=== PATIENT | female | born 1975 | race Caucasian/White ===

== ENCOUNTER 2018-09-06 10:11 | Day surgery (SDC) | payer BC ==
[2018-09-02 11:10] VITALS: BMI 35.6
[~2018-09-06 10:11] MED LIST: LIDOCAINE 1% 20 ML VIAL (10MG/ML) FOR IV START INTRADERMA PRN
[2018-09-06] MEDS: LACTATED RINGERS 1,000 ML IV SCH ×2 (10:55→12:17)
[2018-09-06 11:02] VITALS: TEMP 97.9
[2018-09-06] MEDS ORDERED: fentaNYL (PF) 50 MCG/ML 2 ML AMP ONE (12:21)
[2018-09-06] MEDS ORDERED: PROPOFOL 10 MG/ML 20 ML VIAL IV ONE (12:21)
[2018-09-06] MEDS ORDERED: LIDOCAINE 1% INJ 10MG/ML (20 ML MDV) ONE (12:21)
[2018-09-06 12:56] VITALS: BP 103/67; PULSE 61; RESP 18
--- NOTE | 2018-09-06 13:06 | P.PCN ---
Date of Procedure: 09/06/18 Procedure(s) Performed: Procedure: Total colonoscopy. Preoperative diagnosis: History of diverticulitis and abnormal CT. Postoperative diagnosis: Diverticulosis with no evidence of acute diverticulitis , strictures, polyps or cancer. Preparation: HalfLytely prep. Sedation: Was provided by anesthesia. Brief clinical history: The patient is a 42-year-old female who had an episode of diverticulitis in June of this year and continued to have abdominal symptoms after that. CT of the abdomen raised the possibility of neoplasia/ complicated diverticular disease. This evaluation is to assess for those possibilities and to guide therapy. This would be her first colonoscopy. Procedure: With the patient on her left lateral decubitus position and after informed consent and adequate sedation, the perianal area was inspected and it did not show any fissures or fistulas. There were no masses felt on digital rectal examination. The Olympus CFQ 160L video colonoscope was then inserted in the rectum in the usual fashion and advanced to the cecum. There were multiple diverticular orifices seen scattered on the left side and occasional small orifice around the hepatic flexure and on the right side with no evidence of acute diverticulitis or strictures. The mucosa appeared healthy. No significant polyps or tumors were seen or any pathology to correspond to the abnormalities on CT. I retroflexed the endoscope in the rectum before the endoscope was withdrawn. The patient tolerated the procedure well. Plan: The patient was reassured. Discussed dietary measures and symptomatic treatment. She will follow-up in our office as planned and we would keep you updated on her progress.
== END 2018-09-06 13:45 | disposition home or self-care (01) ==
LOC: ORWHC2ENDO 10:11
DX: K57.30 Diverticulosis of large intestine without perforation or abscess without bleeding (principal); F17.210 Nicotine dependence, cigarettes, uncomplicated; K21.9 Gastro-esophageal reflux disease without esophagitis; Z88.5 Allergy status to narcotic agent; Z88.2 Allergy status to sulfonamides
CPT/HCPCS: 45378; J2001; J3010; J2704